=== PATIENT | female | born 1990 | race Caucasian/White ===

== ENCOUNTER 2017-07-22 10:49 | Inpatient (IN) | payer BC ==
[~2017-07-22] VITALS: Ht 167.6 cm; Wt 85.7 kg
[2017-07-22] MEDS ORDERED: BUPIVACAINE /PF 0.75% 10 ML VIAL INJ ONE (10:54)
[2017-07-22] MEDS ORDERED: BUPIVACAINE /PF 0.25% 30 ML VIAL INJ ONE (10:54)
[2017-07-22] MEDS: LR 1,000 ML IV SCH ×2 (11:05→11:25)
[2017-07-22] MEDS ORDERED: AMPICILLIN SODIUM 2 GM VIAL ONE (11:20)
[2017-07-22] MEDS ORDERED: fentaNYL CITRATE/PF 100 MCG/2 ML AMP ONE ×2 (11:27→13:03)
[2017-07-22] MEDS ORDERED: LR 1,000 ML IV ONE (11:35)
[2017-07-22] MEDS ORDERED: OXYTOCIN/0.9 % SODIUM CHLORIDE 1,000 ML IV SCH (11:35)
[2017-07-22] MEDS ORDERED: AMPICILLIN SODIUM 2 GM in NS 100 ML IV ONE (11:45)
[2017-07-22] MEDS ORDERED: TERBUTALINE SULFATE 1 MG/ML VIAL SUBCUT ONE (11:45)
[2017-07-22] MEDS ORDERED: LR 500 ML IV ONE (12:25)
[2017-07-22] MEDS ORDERED: FENT2mCg/mL-ROPIVA0.2%/NS EPID 150 ML EP SCH (12:30)
[2017-07-22] MEDS ORDERED: ROPIVACAINE 0.2% 100 ML ONE (13:03)
[2017-07-22 13:12] LABS: HEMATOCRIT 28.8 % (36-48); HEMOGLOBIN 9.5 g/dL (12.0-16.0); MEAN CORPUSCULAR HEMOGLOBIN 25 pg (27-31); MEAN CORPUSCULAR HGB CONC 33 % (32-36); MEAN CORPUSCULAR VOLUME 75 fL (79.0-98.0); RED BLOOD CELL COUNT(AUTO) 3.84 MIL/uL (4.2-6.2); WHITE BLOOD COUNT (AUTO) 8.5 K/uL (4.8-10.8)
[2017-07-22 13:13] LABS: BASOPHILS # (AUTO) 0.1 K/uL (0.0-0.2); BASOPHILS % (AUTO) 0.6 % (0.0-2.0); EOSINOPHILS # (AUTO) 0.1 K/uL (0.0-0.4); EOSINOPHILS % (AUTO) 1.7 % (0.0-4.0); LYMPHOCYTES # (AUTO) 2.7 K/uL (1.0-5.5); LYMPHOCYTES % (AUTO) 31.9 % (20.5-51.5); MONOCYTES # (AUTO) 0.6 K/uL (0.0-1.0); MONOCYTES % (AUTO) 7.4 % (1.7-9.3); NEUTROPHILS % (AUTO) 58.4 % (40.0-70.0); RED CELL DISTRIBUTION WIDTH 15.2 % (9.0-15.0)
[2017-07-22 13:25] LABS: PLATELET COUNT (AUTO) 177 K/uL (130-430)
[2017-07-22 14:47] VITALS: BP_SYST 140
[2017-07-22] MEDS ORDERED: AMPICILLIN SODIUM 1 GM in NS 50 ML IV SCH (16:30)
[2017-07-22] MEDS ORDERED: CEFAZOLIN 2 GM IVPB PREMIX 50 ML IV ONE ×3 (17:39→18:06)
[2017-07-22] MEDS ORDERED: ONDANSETRON HCL 4 MG/2 ML VIAL IVP ONE (18:06)
[2017-07-22] MEDS ORDERED: LIDOCAINE/EPI MPF 2%1:200000 10 ML VIAL INJ ONE (18:06)
[2017-07-22] MEDS ORDERED: LR 1,000 ML IV.SOLN IV ONE (18:06)
[2017-07-22] MEDS ORDERED: METHYLERGONOVINE MALEATE 0.2 MG/ML AMP IM ONE (18:06)
[2017-07-22] MEDS ORDERED: OXYTOCIN 10 UNIT/ML VIAL IV ONE (18:06)
[2017-07-22] MEDS ORDERED: NS IRRIG SOLN 1000 ML IR ONE (18:06)
[2017-07-22] MEDS ORDERED: PROPOFOL 200MG/ 20ML VIAL (DIPRIVAN) IV ONE (18:06)
[2017-07-22] MEDS ORDERED: ePHEDrine sulfate 50 MG/ML VIAL IVP ONE (18:06)
[2017-07-22] MEDS ORDERED: BUPIVACAINE /DEX PF 0.75% SPINAL 2 ML AMP INJ ONE (18:06)
[2017-07-22] MEDS ORDERED: MIDAZOLAM HCL 5 MG/5 ML VIAL IVP ONE (18:06)
[2017-07-22] MEDS ORDERED: KETOROLAC TROMETHAMINE 30 MG VIAL IVP PRN (19:15)
[2017-07-22] MEDS ORDERED: NALBUPHINE HCL 10 MG/ML AMP IVP PRN (19:15)
[2017-07-22] MEDS ORDERED: DIPHENHYDRAMINE INJ 50 MG/ML VIAL IVP PRN (19:15)
[2017-07-22] MEDS ORDERED: ONDANSETRON HCL 4 MG/2 ML VIAL IVP PRN ×2 (19:15)
[2017-07-22] MEDS ORDERED: KETOROLAC TROMETHAMINE 60 MG/2 ML VIAL IM PRN (19:15)
[2017-07-22] MEDS ORDERED: NALOXONE HCL 0.4 MG/ML AMP (NARCAN) IVP PRN ×2 (19:15)
[2017-07-22] MEDS ORDERED: MORPHINE SULFATE 10MG/10ML PF AMP EP SCH (19:15)
[2017-07-22] MEDS ORDERED: fentaNYL CITRATE/PF 100 MCG/2 ML AMP IVP PRN ×2 (19:15)
[2017-07-22] MEDS ORDERED: LR 1,000 ML IV SCH (19:41)
[2017-07-22] MEDS ORDERED: OXYTOCIN/0.9 % SODIUM CHLORIDE 1,000 ML IV ONE (19:41)
[2017-07-22] MEDS ORDERED: LANOLIN 7 GM OINT. TP PRN (19:45)
[2017-07-22] MEDS ORDERED: SIMETHICONE 80 MG TAB.CHEW PO PRN (19:45)
[2017-07-22] MEDS ORDERED: DIPH-TET-PERTUS Vaccine 0.5 ML VIAL (ADACEL) I.M. PRN (19:45)
[2017-07-22] MEDS ORDERED: OXYCODONE/ACETAMINOPHEN 5-325 TABLET PO PRN ×2 (19:45)
[2017-07-22] MEDS ORDERED: DOCUSATE SODIUM 100 MG CAPSULE PO PRN (19:45)
[2017-07-22] MEDS ORDERED: RHO(D) IMMUNE GLOBULIN/MALTOSE 1500 UNITS/1.3 ML (WINHRO) IM PRN (19:45)
[2017-07-22] MEDS ORDERED: BISACODYL 10 MG/SUPPOSITORY RC PRN (19:45)
[2017-07-22] MEDS ORDERED: MEASLES,MUMPS&RUBELLA VACC/PF 12500 UNIT/0.5 ML VIAL SUBQ PRN (19:45)
[2017-07-22] MEDS ORDERED: ANUSOL 1 EA SUPP.RECT (PREPARATION H) RC PRN (19:45)
[2017-07-22] MEDS ORDERED: SENNOSIDES/DOCUSATE SODIUM 1 TAB TABLET(SENOKOT-S) PO PRN (19:45)
[2017-07-22 19:50] VITALS: BP_SYST 125
[2017-07-22] MEDS ORDERED: TEMAZEPAM 15 MG CAPSULE PO PRN (21:00)
[2017-07-23 07:06] LABS: BASOPHILS % (AUTO) 0.1 % (0.0-2.0); EOSINOPHILS % (AUTO) 0.1 % (0.0-4.0); HEMATOCRIT 22.3 % (36-48); HEMOGLOBIN 7.4 g/dL (12.0-16.0); LYMPHOCYTES # (AUTO) 2.2 K/uL (1.0-5.5); LYMPHOCYTES % (AUTO) 12.4 % (20.5-51.5); MEAN CORPUSCULAR HEMOGLOBIN 25 pg (27-31); MEAN CORPUSCULAR HGB CONC 33 % (32-36); MEAN CORPUSCULAR VOLUME 74 fL (79.0-98.0); MONOCYTES # (AUTO) 0.9 K/uL (0.0-1.0); NEUTROPHILS # (AUTO) 14.6 K/uL (1.8-7.7); NEUTROPHILS % (AUTO) 82.4 % (40.0-70.0); PLATELET COUNT (AUTO) 168 K/uL (130-430); RED CELL DISTRIBUTION WIDTH 15.2 % (9.0-15.0); WHITE BLOOD COUNT (AUTO) 17.7 K/uL (4.8-10.8)
[2017-07-23] MEDS ORDERED: FERROUS SULFATE 325 MG TABLET.DR PO SCH (09:00)
[2017-07-23] MEDS: METHYLERGONOVINE MALEATE 0.2 MG TABLET PO SCH ×4 (09:26→21:01)
[2017-07-23] MEDS: IBUPROFEN 600 MG TABLET PO SCH ×2 (12:16→18:12)
[2017-07-24] MEDS: IBUPROFEN 600 MG TABLET PO SCH ×5 (00:07→23:36)
[2017-07-24] MEDS ORDERED: HYDROcodone/ACETAMIN 5-325 MG TAB (NORCO/ VICODIN) ONE (10:51)
[2017-07-24] MEDS: MAG-AL HYDROX/SIMETH 30 ML UDC PO PRN ×2 (12:19→18:14)
[2017-07-24] MEDS: HYDROcodone/ACETAMIN 5-325 MG TAB (NORCO/ VICODIN) PO PRN (22:22)
[2017-07-25] MEDS: IBUPROFEN 600 MG TABLET PO SCH (06:05)
[2017-07-25] MEDS: HYDROcodone/ACETAMIN 5-325 MG TAB (NORCO/ VICODIN) PO PRN (10:23)
[2017-07-26 19:14] LABS: FTA-Ab (T PALLIDUM) Non Reactive (Non Reactive)
== END 2017-07-25 10:55 | disposition home or self-care (01) | DRG 766 ==
LOC: SPU 11:00
PROVIDERS: ADMIT Obstetrics & Gynecology; ATTEND Obstetrics & Gynecology
PROC: 0UB70ZZ Excision of Bilateral Fallopian Tubes, Open Approach (ICD-10-PCS; 2017-07-22)
PROC: 10D00Z1 Extraction of Products of Conception, Low, Open Approach (ICD-10-PCS; principal; 2017-07-22 18:00)
DX: O99.824 Streptococcus B carrier state complicating childbirth (principal); O24.420 Gestational diabetes mellitus in childbirth, diet controlled; O62.2 Other uterine inertia; Z37.0 Single live birth; Z30.2 Encounter for sterilization; Z3A.38 38 weeks gestation of pregnancy
CPT/HCPCS: 36415; 81002-TC; 85025; 86592; 86780; 86886; 86900; 86901; 88302; 94760; J0290; J0690; J1885; J2210; J2250; J2405; J2590; J2704; J2795; J3010; J3490; J7120